=== PATIENT | male | born 1955 | race Caucasian/White ===

== ENCOUNTER 2024-04-05 18:44 | Emergency (ER) | payer BC, MEDICARE ==
[2024-04-05] MEDS: Sodium Chloride 0.9% 1,000 ML IV ONE (19:30)
[2024-04-05 19:35] LABS: BASOPHILS ABSOLUTE AUTO 0.01 K/uL (0.02-0.10); BASOPHILS PERCENT AUTO 0.1 % (0.0-0.5); EOSINOPHILS ABSOLUTE AUTO 0.01 K/uL (0.04-0.40); EOSINOPHILS PERCENT AUTO 0.1 % (1.0-5.0); HEMATOCRIT 39.3 % (40.0-54.0); HEMOGLOBIN 13.7 g/dL (13.0-18.0); LYMPHOCYTES ABSOLUTE AUTO 0.18 K/uL (1.50-4.00); LYMPHOCYTES PERCENT AUTO 2.4 % (20.0-40.0); MEAN CORPUSCULAR HEMOGLOBIN 30.4 pg (27.0-32.0); MEAN CORPUSCULAR HGB CONC 34.9 g/dL (31.0-35.0); MEAN CORPUSCULAR VOLUME 87 fL (76-96); MEAN PLATELET VOLUME 9.7 fL (6.0-10.0); MONOCYTES ABSOLUTE AUTO 0.08 K/uL (0.20-0.80); MONOCYTES PERCENT AUTO 1.1 % (3.0-10.0); NEUTROPHILS ABSOLUTE AUTO 7.16 K/uL (2.00-7.50); NEUTROPHILS PERCENT AUTO 96.3 % (45.0-70.0); PLATELET COUNT,PLT 149 K/uL (150-400); RED BLOOD CELL COUNT 4.51 M/uL (4.50-6.50); RED CELL DISTRIBUTION WIDTH 12.8 % (11.0-16.0); WHITE BLOOD CELL COUNT,WBC 7.4 K/uL (4.0-11.0)
[2024-04-05] MEDS ORDERED: Ondansetron 4 MG/2 ML SDV ONE (19:36)
[2024-04-05] MEDS ORDERED: Pantoprazole 40 MG Vial ONE (19:36)
[2024-04-05] MEDS: Pantoprazole 40 MG Vial IVPUSH ONE (19:37)
[2024-04-05] MEDS: Ondansetron 4 MG/2 ML SDV IVPUSH ONE (19:37)
[2024-04-05 19:52] LABS: MAGNESIUM 1.2 mg/dL (1.8-2.4); TROPONIN I HIGH SENSITIVITY 6.6 pg/ml (<=60.4)
[2024-04-05 19:56] LABS: APPEARANCE,URINE CLEAR (CLEAR); BILIRUBIN,URINE SMALL (NEGATIVE); COLOR,URINE YELLOW; GLUCOSE,URINE NEGATIVE (NEGATIVE); KETONES,URINE NEGATIVE (NEGATIVE); LEUKOCYTE ESTERASE,URINE NEGATIVE (NEGATIVE); NITRITE,URINE NEGATIVE (NEGATIVE); OCCULT BLOOD,URINE NEGATIVE (NEGATIVE); PH,URINE 5.5 (5.0-8.0); PROTEIN,URINE NEGATIVE (NEGATIVE)
[2024-04-05 19:56] LABS: A/G RATIO 1.2 (0.8-2.0); ALBUMIN 3.6 g/dL (3.4-5.0); ANION GAP 12.7 mmol/L (5.0-15.0); BILIRUBIN TOTAL 2.5 mg/dL (0.0-1.0); BUN/CREATININE RATIO 19.2 (6-25); CALCIUM 8.4 mg/dL (8.5-10.1); CREATININE 1.2 mg/dL (0.70-1.30); EST CRCL DRUG DOSING (CG) 66.46 mL/min; POTASSIUM,K 3.7 mmol/L (3.5-5.1); PROTEIN TOTAL,TP 6.6 g/dL (6.4-8.2)
[2024-04-05 20:00] LABS: RBC,URINE NOT SEEN /HPF; WBC,URINE NOT SEEN /HPF
[2024-04-05] MEDS ORDERED: Magnesium Sulfate/Water 2 GM in Premix Bag 1 BAG IV ONE (20:21)
[2024-04-05] MEDS ORDERED: Ondansetron 4 MG Tab.DIS ONE (21:00)
[2024-04-05] MEDS ORDERED: Acetaminophen/HYDROcodone 325-5 MG Tab ONE (21:00)
== END 2024-04-05 21:45 | disposition home or self-care (01) ==
LOC: LB.ED 18:44
DX: K82.9 Disease of gallbladder, unspecified (principal); E78.00 Pure hypercholesterolemia, unspecified; I25.2 Old myocardial infarction; I10 Essential (primary) hypertension; K21.9 Gastro-esophageal reflux disease without esophagitis; M19.90 Unspecified osteoarthritis, unspecified site; E11.9 Type 2 diabetes mellitus without complications; Z86.16 Personal history of COVID-19; Z95.1 Presence of aortocoronary bypass graft; Z79.84 Long term (current) use of oral hypoglycemic drugs; Z79.82 Long term (current) use of aspirin; Z79.899 Other long term (current) drug therapy; Z88.8 Allergy status to other drugs, medicaments and biological substances
CPT/HCPCS: 36415; 74176; 80053; 81001; 83690; 83735; 84484; 85025; 93005; 96361; 96374; 96375; 99284; A9270; C9113; J2405; J7030; Q0162; 93010